=== PATIENT | female | born 1985 | race Caucasian/White ===

== ENCOUNTER → 2024-12-01 | Outpatient (CLI) | payer OTHER ==
[~2024-12-01] MED LIST: DIAZ5 PO; HYDACE5 PO; IBUP400 PO; IBUP800; LEVFLO500 PO; LORA10ER PO; MEDR150I; NAPR550 PO; OXYACE5T PO; PHENA200 PO; RXNAPNA550 PO; RXPHEN200 PO
== END ==
LOC: LAB SHORT 11:50 → LAB 11:50
DX: J02.9 Acute pharyngitis, unspecified (principal)
CPT/HCPCS: 87081